=== PATIENT | male | born 1935 | race Caucasian/White ===

== ENCOUNTER → 2018-11-09 | Outpatient (REF) | payer MEDICARE, OTHER ==
[~2018-11-09] MED LIST: ALLO100T PO; ASPI81TA85 PO; ATIV1TAB10 PO; ATOR40TA75 PO; BRIL90TA PO; CALC600T27 PO; FLOM0.4C39 PO; FURO40TA2 PO; LISI-1046 PO; METO25TA4 PO; MYRB50TA PO; POTA10TA17 PO; PRIL20TA2 PO; VITAD1000T PO; ZOLO100T PO; ZOLO50TA PO
[2018-11-09 18:25] LABS: PERCENT SATURATION 21.9 % (19.7-50.0)
[2018-11-09 18:34] LABS: FOLATE 17.6 NG/ML
== END ==
LOC: M LAB REF 17:16
PROVIDERS: ATTEND Internal Medicine Nephrology
DX: D64.9 Anemia, unspecified (principal)

== ENCOUNTER 2019-09-25 21:20 | Emergency (ER) | payer MEDICARE, OTHER ==
[~2019-09-25 21:20] MED LIST changes: -ASPI81TA85 PO; +ASPI81TA86 PO; +CHOL100029 PO; -LISI-1046 PO; +LISI2.5T2 PO; -VITAD1000T PO
[2019-09-25 22:55] LABS: HEMATOCRIT 29.1 % (42.0-52.0); HEMOGLOBIN 9.4 g/dl (13.5-17.5); MEAN CORPUSCULAR HEMOGLOBIN 29.9 pg (27.0-33.0); MEAN CORPUSCULAR HGB CONC 32.3 g/dl (32.0-36.5); MEAN CORPUSCULAR VOLUME 92.7 fl (80.0-96.0); PLATELET COUNT, AUTOMATED 161 10^3/uL (150-450); RED BLOOD COUNT 3.14 10^6/uL (4.30-6.10)
[2019-09-25 23:33] LABS: ACETAMINOPHEN LEVEL < 2.0 UG/ML (10.0-30.0); ALBUMIN 3.4 GM/DL (3.2-5.2); ALT/SGPT 28 U/L (12-78); BILIRUBIN,DIRECT 0.2 MG/DL (0.0-0.2); BILIRUBIN,TOTAL 0.4 MG/DL (0.2-1.0); BLOOD UREA NITROGEN 40 MG/DL (7-18); CALCIUM LEVEL 8.2 MG/DL (8.8-10.2); CARBON DIOXIDE LEVEL 26 MEQ/L (21-32); CHLORIDE LEVEL 108 MEQ/L (98-107); CREATININE FOR GFR 1.28 MG/DL (0.70-1.30); ETHYL ALCOHOL (ETHANOL) < 0.003 % (0.000-0.010); GLOMERULAR FILTRATION RATE 57.1 (>35); GLUCOSE, FASTING 86 MG/DL (70-100); POTASSIUM SERUM 4.4 MEQ/L (3.5-5.1); SALICYLATE LEVEL < 1.7 MG/DL (5.0-30.0); SODIUM LEVEL 142 MEQ/L (136-145); TOTAL PROTEIN 6.5 GM/DL (6.4-8.2)
--- NOTE | 2019-09-25 23:55 | MHIPNPDOC ---
[facility] Progress Note Progress Note DATE OF SERVICE: 09/25/19 HISTORY: 84 year old male who was brought in by EMS from [facility] after Staff found him with a plastic bag on his head. The Staff members thought he was trying to kill himself but the patient adamantly denies suicidal ideation or any desire to hurt himself. He told Leanna Manuel that he was attempting to blow out the wrinkeles in the plastic bag because he doesn't like them. Leanna spoke with his , Mrs. Mavis Ingram and contacted on her phone, . She said that he would never kill himself, is out of character for him. The patient has mobility problems and this makes very hard for him to attempt against his life. Staff from [facility] mentioned he likes to keep plastic bags in his room but they don't remove them from there. VITAL SIGNS: See below. NEW TEST RESULTS: See below CURRENT MEDICATIONS: See below. MENTAL STATUS EXAMINATION: Patient is a 84-year old male, who is alert, laying in bed a little bit upset because he was awakened to zoom with me.. Speech: Is normal in tone, rhythm, rate and volume. Spontaneous and fluent Language skills are I could not full y assess them because patient did not want to cooperate with interview, he closed his eyes and went to sleep/ Thought processes including: unable to assess, patient was asleep when I was going to zoom with him, and when he woke up he was upset about being awakened, closed his eyes and didn't want to proceed with the psychiatric interview . Thought content: Unable to assess, patient was asleep when I was going to zoom with him, and when he woke up he was upset about being awakened, closed his eyes and didn't want to proceed with the psychiatric interview Abstract reasoning, and computation: Unable to assess, patient was asleep when I was going to zoom with him, and when he woke up he was upset about being awakened, closed his eyes and didn't want to proceed with the psychiatric interview Description of associations: unable to assess, patient was asleep when I was going to zoom with him, and when he woke up he was upset about being awakened, closed his eyes and didn't want to proceed with the psychiatric interview. Description of abnormal or psychotic thoughts: unable to assess, patient was asleep when I was going to zoom with him, and when he woke up he was upset about being awakened, closed his eyes and didn't want to proceed with the psychiatric interview Judgment: unable to assess, patient was asleep when I was going to zoom with him, and when he woke up he was upset about being awakened, closed his eyes and didn't want to proceed with the psychiatric interview. Insight: unable to assess, patient was asleep when I was going to zoom with him, and when he woke up he was upset about being awakened, closed his eyes and didn't want to proceed with the psychiatric interview Orientation: unable to assess, patient was asleep when I was going to zoom with him, and when he woke up he was upset about being awakened, closed his eyes and didn't want to proceed with the psychiatric interview Recent and remote memory: unable to assess, patient was asleep when I was going to zoom with him, and when he woke up he was upset about being awakened, closed his eyes and didn't want to proceed with the psychiatric interview Attention span and concentration: unable to assess, patient was asleep when I was going to zoom with him, and when he woke up he was upset about being awakened, closed his eyes and didn't want to proceed with the psychiatric interview Language: unable to assess, patient was asleep when I was going to zoom with him, and when he woke up he was upset about being awakened, closed his eyes and didn't want to proceed with the psychiatric interview Fund of knowledge: unable to assess, patient was asleep when I was going to zoom with him, and when he woke up he was upset about being awakened, closed his eyes and didn't want to proceed with the psychiatric interview Mood: irritable. Affect: congruent with mood. DIAGNOSES: 1. Neurocognitive disorder ASSESSMENT: The patient could not be evaluated but he doesn't seem depressed. His reaction was appropriate when he didn't want to speak with me because he was tired and he only wanted to sleep. I will re assess him in the morning if [facility] staff would not be willing to take him back to the [facility]. I truly believe he was not trying to kill himself. His family has visited him and they see him everyday through a screen in the Longterm and he says he has not been having SI. MANAGEMENT PLAN: Will zoom with him if [facility] doesn't want to take him back tomorrow TIME SPENT: 5 minutes. Vital Signs Vital Signs Date Time Temp Pulse Resp B/P (MAP) Pulse Ox O2 Delivery O2 Flow Rate FiO2 09/25/19 21:46 98.7 60 18 182/69 (106) 98 Room Air Laboratory Data 24H Labs Laboratory Tests 2 09/25/19 22:44: Anion Gap 8, Glomerular Filtration Rate 57.1, Calcium Level 8.2L, Total Bilirubin 0.4, Direct Bilirubin 0.2, Aspartate Amino Transf (AST/SGOT) 25, Alanine Aminotransferase (ALT/SGPT) 28, Alkaline Phosphatase 323H, Total Protein 6.5, Albumin 3.4, Albumin/Globulin Ratio 1.1, Thyroid Stimulating Hormone (TSH) 4.590H, Salicylates Level < 1.7L, Acetaminophen Level < 2.0L, Ethyl Alcohol Level < 0.003 09/25/19 22:45: Nucleated Red Blood Cells % (auto) 0.0 CBC/BMP Laboratory Tests 09/25/19 22:44 09/25/19 22:45 Allergies Coded Allergies: atorvastatin (Verified Allergy, Intermediate, 09/25/19) esomeprazole (Verified Allergy, Intermediate, 09/25/19) simvastatin (Verified Allergy, Intermediate, 09/25/19) SOFI FARIAS MD Sep 25, 2019 23:55
--- NOTE | 2019-09-26 11:34 | MHIPNPDOC ---
[facility] Progress Note Progress Note DATE OF SERVICE: 09/26/19 HISTORY: 84 year old male who was brought in by EMS from [facility] after Staff found him with a plastic bag on his head. The Staff members thought he was trying to kill himself but the patient adamantly denies suicidal ideation or any desire to hurt himself. He told Leanna Manuel that he was attempting to blow out the wrinkeles in the plastic bag because he doesn't like them. Leanna spoke with his , Mrs. Mavis Ingram and contacted on her phone, . She said that he would never kill himself, is out of character for him. The patient has mobility problems and this makes very hard for him to attempt against his life. Staff from [facility] mentioned he likes to keep plastic bags in his room but they don't remove them from there. VITAL SIGNS: See below. NEW TEST RESULTS: See below CURRENT MEDICATIONS: See below. MENTAL STATUS EXAMINATION: Patient is a 84-year old male, who is alert, laying in bed, dressed in hospital clothes Speech: A little bit garbled, noral tone and volume. Not spontaneous, not fluent Language skills are limited as it is to be expected therese patient with neurocognitive disorder Thought processes including: He is not answering my questions but I can see that he has difficulty processing the questions that I'm formulating. He seems to be thinking about the question and eventually, he can't or he doesn't want to answer Thought content: Unable to assess, the patient did not engage in the conversation, he remianed silent and covered his face with his hand Abstract reasoning, and computation: Unable to assess, the patient is not cooperative with interview at this time, he is not answering any of my questions Description of associations: unable to assess, patient is not answering my questions Description of abnormal or psychotic thoughts: unable to assess, patient is not answering my questions Judgment: unable to assess, patient is not answering my questions Insight: unable to assess, patient is nit answering my questions Orientation: unable to assess, patient is not answering my questions Recent and remote memory: unable to assess, patient is not answering my questio ns Attention span and concentration: unable to assess, patient is not answering my questions Language: unable to assess Fund of knowledge: unable to assess Mood: Calm. Affect: constricted DIAGNOSES: 1. Neurocognitive disorder ASSESSMENT: The patient has mobility problems, is very limited. His thought process is slow. He is not impulsive, he has not been inappropriate, aggressive or violent to anybody. since he came last night to the Emergency he has not displayed angry, aggressive or violent behavior. He has not threatened anyone, he has not attempted to hurt himself. He has adamantly denied that he wanted to kill himself, he tould our Hosiery Mender, last night that he ws trying to blow the wrinkles away from the plastic bab that according to the Snf he had on his head and they interpreted that as if he was going to kill himself, where he said last night he tried to explain to them that he was not trying to do that but they didn't listen to him. There is nothing that the Inpatient Mental Health Unit can offer to him in terms of treatment because our Unit is an acute treatment Unit to help stabilize people in a short period of time. The patient condition is chronic and progressive. Inevitably, patients with a Neurocognitive disorder engage in irrational actions due to the Nature of their illness but there are measures that the home could take to prevent this situation m for example: 1. Place him in a rom across or next to the Nurse station to be able to supervise him closely 2. He has mobility problems, it would be extremely difficult for him to get out of the prison and walk to a bridge or a major road to kill himself. He barely can move, that limits his possibilities of committing suicide. 3. If he likes to have plastic bags in his room, remove them. People with neurocognitive disorder shoulsn't have things in their rooms that could be used to hurt themselves or hurt other people. His room should be safe. 4. He has no previous suicide attempts and that is the major predictor for future suicide attempts. 5. His , Mavis Ingram was contacted last night and she said that she considers her would never kill himself, that is out of his character. Ann telephone number is [phone] 5. Based on all those previous considerations, I think the patient has very low risk for suicide if the proper safety measures are taken at the Snf. 6. The patient should go back to the [facility]. At this point we have no evidence that he is a danger to self or others. He has not been impulsive, aggressive, violent at the ED. He has not tried to hurt himself while at the ED. MANAGEMENT PLAN: Patient can go back to the [facility] in [place] where he came back from TIME SPENT: 20 minutes. Vital Signs Vital Signs Date Time Temp Pulse Resp B/P (MAP) Pulse Ox O2 Delivery O2 Flow Rate FiO2 09/25/19 21:46 98.7 60 18 182/69 (106) 98 Room Air Laboratory Data 24H Labs Laboratory Tests 2 09/25/19 22:44: Anion Gap 8, Glomerular Filtration Rate 57.1, Calcium Level 8.2L, Total Bilirubin 0.4, Direct Bilirubin 0.2, Aspartate Amino Transf (AST/SGOT) 25, Alanine Aminotransferase (ALT/SGPT) 28, Alkaline Phosphatase 323H, Total Protein 6.5, Albumin 3.4, Albumin/Globulin Ratio 1.1, Thyroid Stimulating Hormone (TSH) 4.590H, Salicylates Level < 1.7L, Acetaminophen Level < 2.0L, Ethyl Alcohol Level < 0.003 09/25/19 22:45: Nucleated Red Blood Cells % (auto) 0.0 CBC/BMP Laboratory Tests 09/25/19 22:44 09/25/19 22:45 Allergies Coded Allergies: atorvastatin (Verified Allergy, Intermediate, 09/25/19) esomeprazole (Verified Allergy, Intermediate, 09/25/19) simvastatin (Verified Allergy, Intermediate, 09/25/19) SOFI FARIAS MD Sep 26, 2019 11:34
--- NOTE | 2019-09-26 13:09 | MHIPNPDOC ---
[facility] Progress Note Progress Note DATE OF SERVICE: 09/26/19 To whom this may Concern: Mr. Ingram has not been suicidal or homicidal since he arrived to our Emergency Department. Based on my observations, which I already expressed on my previous evaluation, he is in no danger to self or others because he hasn't been dangerous to us or to himself, he has not displayed impulsive, aggressive, angry, self destructive behavior and he has not threatened to commit suicide or homicide, not at the time he has been with us, at the time of his evaluation and a last consideration: He doesn't fulfill the criteria for hospitalization at [facility] because he has not been dangerous, because he has not reported suicidal ideation, because he says he never wanted to kill himself when the Staff at [facility] thought he wanted to do this. He has not been dangerous to self or others and he has not reported SI/HI. He should go back to [facility]. Vital Signs Vital Signs Date Time Temp Pulse Resp B/P (MAP) Pulse Ox O2 Delivery O2 Flow Rate FiO2 09/25/19 21:46 98.7 60 18 182/69 (106) 98 Room Air Laboratory Data 24H Labs Laboratory Tests 2 09/25/19 22:44: Anion Gap 8, Glomerular Filtration Rate 57.1, Calcium Level 8.2L, Total Bilirubin 0.4, Direct Bilirubin 0.2, Aspartate Amino Transf (AST/SGOT) 25, Alanine Aminotransferase (ALT/SGPT) 28, Alkaline Phosphatase 323H, Total Protein 6.5, Albumin 3.4, Albumin/Globulin Ratio 1.1, Thyroid Stimulating Hormone (TSH) 4.590H, Salicylates Level < 1.7L, Acetaminophen Level < 2.0L, Ethyl Alcohol Level < 0.003 09/25/19 22:45: Nucleated Red Blood Cells % (auto) 0.0 CBC/BMP Laboratory Tests 09/25/19 22:44 09/25/19 22:45 Allergies Coded Allergies: atorvastatin (Verified Allergy, Intermediate, 09/25/19) esomeprazole (Verified Allergy, Intermediate, 09/25/19) simvastatin (Verified Allergy, Intermediate, 09/25/19) SOFI FARIAS MD Sep 26, 2019 13:09
[2019-09-26 14:27] VITALS: BP 169/66
== END 2019-09-26 14:30 | disposition home or self-care (01) ==
LOC: EDBD 21:20 → M ED 21:20
DX: R54 Age-related physical debility (principal); I10 Essential (primary) hypertension; F33.9 Major depressive disorder, recurrent, unspecified; D64.9 Anemia, unspecified; N40.0 Benign prostatic hyperplasia without lower urinary tract symptoms; F03.90 Unspecified dementia, unspecified severity, without behavioral disturbance, psychotic disturbance, mood disturbance, and anxiety; I25.10 Atherosclerotic heart disease of native coronary artery without angina pectoris; Z79.899 Other long term (current) drug therapy; Z79.82 Long term (current) use of aspirin; Z88.8 Allergy status to other drugs, medicaments and biological substances
CPT/HCPCS: 36415; 80048; 80076; 84443; 85027; 99284; G0480